=== PATIENT | male | born 1990 | race African-American/Black ===

== ENCOUNTER 2016-05-25 15:46 | Emergency (ER) | payer SELFPAY ==
[~2016-05-25] VITALS: Ht 188 cm; Wt 87.9 kg
[~2016-05-25 15:46] MED LIST: IBUP1TAB PO; IBUP200C14 PO; MULT-273 PO; VSNOPS OP
[2016-05-25 15:50] VITALS: TEMP 36.9; Ht 188 cm; Wt 87.9 kg
--- NOTE | 2016-05-25 17:07 | DIAGNOSTIC IMAGING REPORT ---
CT OF THE HEAD WITHOUT CONTRAST CLINICAL HISTORY: Head injury. COMPARISON STUDY: No previous studies for comparison. CT DOSE: 959.07 mGy.cm TECHNIQUE: Helical axial images of the head were obtained without IV contrast. Automated exposure control was utilized for the study. FINDINGS: No acute intracranial hemorrhage, midline shift or mass effect is present. Ventricular system is normal. Basilar cisterns are patent. There are no extra-axial collections. Rose-white differentiation is maintained. There is a right temporal scalp contusion. There is no calvarial fracture. There is mild mucosal thickening of the sinuses. Mastoid air cells are clear. The maxillofacial CT will be reported separately. IMPRESSION: 1. No acute intracranial findings. 2. Right temporal scalp contusion. No calvarial fracture. Electronically signed by: Vinicio May M.D. 05/25/2016 5:06 PM Dictated Date/Time: 05/25/2016 5:00 PM
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
[2016-05-25 17:58] VITALS: BP 136/85; PULSE 84; O2SAT 98
== END 2016-05-25 17:54 | disposition home or self-care (01) ==
LOC: C.EDB 15:47 → C.EDD 17:54
DX: S02.609A Fracture of mandible, unspecified, initial encounter for closed fracture (principal); X58.XXXA Exposure to other specified factors, initial encounter; S00.91XA Abrasion of unspecified part of head, initial encounter; F17.200 Nicotine dependence, unspecified, uncomplicated